=== PATIENT | female | born 1980 | race Caucasian/White ===

== ENCOUNTER → 2022-08-31 | Day surgery (SDC) | payer BC ==
[~2022-08-31] MED LIST: Bupivacaine 0.5% 30 ML SDV ONE; Dexamethasone 4 MG/ML SDV ONE; Glycopyrrolate 0.2 MG/ML 5 ML MDV ONE; Lactated Ringers 1,000 ML IV SCH; Neostigmine Methylsulfate 1 MG/ML 5 ML Syringe ONE; Nozin Nasal Sanitizer NASBOTH ONE; Ondansetron 4 MG/2 ML SDV ONE; Propofol 200 MG/20 ML SDV ONE; Rocuronium 50 MG/5 ML Vial ONE; Succinylcholine 200 MG/10 ML MDV ONE; ceFAZolin 2 GM in Premix Bag 1 BAG IV ONE; ceFAZolin 2 GM in Sodium Chloride 0.9% 50 ML IV ONE; fentaNYL 250 MCG/5 ML SDV ONE
[2022-08-31 10:29] LABS: ESTIMATED GFR 119 mL/min (>60)
[2022-08-31 17:23] VITALS: BP 114/67; PULSE 83
== END ==
LOC: JP.SDS 09:24
PROVIDERS: ATTEND Specialist
PROC: 0SB94ZZ Excision of Right Hip Joint, Percutaneous Endoscopic Approach (ICD-10-PCS; principal; 2022-08-31)
DX: S73.191A Other sprain of right hip, initial encounter (principal); X58.XXXA Exposure to other specified factors, initial encounter
CPT/HCPCS: 36415; 76000; 80053; 85027; A9270-GY; C1769; J0330; J0690; J1100; J2405; J2704; J2710; J3010; J3490; J7120

== ENCOUNTER 2023-02-16 07:08 | Inpatient (IN) | payer BC ==
[~2023-02-16 07:08] MED LIST changes: -Bupivacaine 0.5% 30 ML SDV ONE; +Bupivacaine 0.5% 50 ML MDV ONE; -Dexamethasone 4 MG/ML SDV ONE; -Glycopyrrolate 0.2 MG/ML 5 ML MDV ONE; -Lactated Ringers 1,000 ML IV SCH; +Lidocaine 1% with EPINEPHrine 1:100,000 50 ML MDV ONE; +Meropenem 500 MG SDV ONE; -Neostigmine Methylsulfate 1 MG/ML 5 ML Syringe ONE; -Nozin Nasal Sanitizer NASBOTH ONE; -Ondansetron 4 MG/2 ML SDV ONE; -Propofol 200 MG/20 ML SDV ONE; -Rocuronium 50 MG/5 ML Vial ONE; -Succinylcholine 200 MG/10 ML MDV ONE; -ceFAZolin 2 GM in Premix Bag 1 BAG IV ONE; -ceFAZolin 2 GM in Sodium Chloride 0.9% 50 ML IV ONE; -fentaNYL 250 MCG/5 ML SDV ONE
[2023-02-16] MEDS ORDERED: fentaNYL 250 MCG/5 ML SDV ONE ×2 (07:11→09:18)
[2023-02-16] MEDS ORDERED: Neostigmine Methylsulfate 1 MG/ML 5 ML Syringe ONE (07:12)
[2023-02-16] MEDS ORDERED: Propofol 200 MG/20 ML SDV ONE (07:12)
[2023-02-16] MEDS ORDERED: Succinylcholine 200 MG/10 ML MDV ONE (07:12)
[2023-02-16] MEDS ORDERED: Rocuronium 50 MG/5 ML Vial ONE (07:12)
[2023-02-16] MEDS ORDERED: Ondansetron 4 MG/2 ML SDV ONE (07:12)
[2023-02-16] MEDS ORDERED: Glycopyrrolate 0.2 MG/ML 5 ML MDV ONE (07:12)
[2023-02-16] MEDS ORDERED: Dexamethasone 4 MG/ML SDV ONE (07:12)
[2023-02-16] MEDS ORDERED: Celecoxib 200 MG Cap PO ONE (07:30)
[2023-02-16] MEDS ORDERED: Dextrose 5%-Lactated Ringers 1,000 ML IV SCH (07:30)
[2023-02-16] MEDS ORDERED: Scopolamine 1.5 MG Transdermal Patch TOP SCH (07:30)
[2023-02-16] MEDS ORDERED: cefOXitin 2 GM in Sodium Chloride 0.9% 50 ML IV ONE (08:30)
[2023-02-16 08:37] LABS: FOLIC ACID 18.8 ng/ml (8.6-58.9)
[2023-02-16] MEDS ORDERED: Ketamine 14 MG in Sodium Chloride 0.9% 19.86 ML IV SCH (08:45)
[2023-02-16] MEDS ORDERED: Ropivacaine 36 ML, dexAMETHasone 8 MG, EPINEPHrine 0.4 MG, Sodium Chloride 0.9% 41.6 ML NERVRT SCH ×4 (08:45)
[2023-02-16] MEDS ORDERED: Ketamine 500 MG/5 ML MDV IV SCH (08:45)
[2023-02-16] MEDS ORDERED: Propofol 1,000 MG/100 ML SDV ONE (10:00)
[2023-02-16] MEDS ORDERED: Naloxone 0.4 MG/ML SDV IVPUSH PRN (10:14)
[2023-02-16] MEDS ORDERED: diphenhydrAMINE 50 MG/ML SDV IVPUSH PRN ×2 (10:14→12:00)
[2023-02-16] MEDS ORDERED: diphenhydrAMINE 25 MG Cap PO PRN (10:14)
[2023-02-16] MEDS ORDERED: Ondansetron 4 MG/2 ML SDV IVPUSH PRN ×2 (10:14→12:00)
[2023-02-16] MEDS ORDERED: fentaNYL/Normal Saline 600 MCG/30 ML PCA Vial IV PRN (10:15)
[2023-02-16] MEDS ORDERED: fentaNYL 50 MCG/ML SDV IVPUSH ONE (10:26)
[2023-02-16] MEDS ORDERED: Cyclobenzaprine 10 MG Tab PO PRN (11:20)
[2023-02-16] MEDS: Dextrose 5%-Lactated Ringers 1,000 ML IV SCH ×2 (11:40→23:28)
[2023-02-16] MEDS ORDERED: Pantoprazole 40 MG Vial IVPUSH SCH (12:00)
[2023-02-16] MEDS ORDERED: hydrOXYzine HCl 50 MG/ML SDV IM PRN (12:00)
[2023-02-16] MEDS ORDERED: Metoclopramide 10 MG/2 ML SDV IVPUSH PRN (12:00)
[2023-02-16] MEDS ORDERED: Labetalol 20 MG/4 ML Syringe IVPUSH PRN (12:00)
[2023-02-16] MEDS ORDERED: Acetaminophen 500 MG Tab PO PRN (12:00)
[2023-02-16] MEDS: SCOPOLAMINE PATCH CHECK TOP SCH (14:05)
[2023-02-16] MEDS: cefOXitin 2 GM in Sodium Chloride 0.9% 50 ML IV SCH ×2 (14:40→20:13)
[2023-02-16] MEDS: MVI, Adult with Vitamin K 10 ML, Thiamine 200 MG, Zinc/Copper/Manganese/Selenium 1 ML i... IV SCH ×4 (16:05)
[2023-02-16] MEDS: Heparin Sodium 5,000 Units/ML Vial SUBCUT SCH (17:18)
[2023-02-16] MEDS: Acetaminophen 500 MG Tab PO SCH (19:23)
[2023-02-16] MEDS: traMADol 50 MG Tab PO PRN (20:12)
[2023-02-17] MEDS: Acetaminophen 500 MG Tab PO SCH ×3 (01:46→18:05)
[2023-02-17] MEDS: cefOXitin 2 GM in Sodium Chloride 0.9% 50 ML IV SCH (01:47)
[2023-02-17] MEDS: traMADol 50 MG Tab PO PRN ×4 (03:06→23:08)
[2023-02-17] MEDS ORDERED: Iopamidol 612 MG/ML 50 ML SDV PO ONE (03:59)
[2023-02-17] MEDS: Heparin Sodium 5,000 Units/ML Vial SUBCUT SCH ×2 (06:43→18:05)
[2023-02-17] MEDS: Dextrose 5%-Lactated Ringers 1,000 ML IV SCH ×2 (07:08→07:53)
[2023-02-17] MEDS ORDERED: Ondansetron 4 MG Tab.DIS PO PRN (07:39)
[2023-02-17] MEDS: Bisacodyl 5 MG Tab PO SCH ×2 (09:52→20:12)
[2023-02-17] MEDS: Docusate Sodium 100 MG Cap PO SCH ×2 (09:52→20:12)
[2023-02-17] MEDS: SCOPOLAMINE PATCH CHECK TOP SCH (09:53)
[2023-02-17] MEDS: Pantoprazole 40 MG Tab.CR PO SCH (11:05)
[2023-02-17] MEDS: MVI, Adult with Vitamin K 10 ML, Thiamine 200 MG, Zinc/Copper/Manganese/Selenium 1 ML i... IV SCH ×4 (16:22)
[2023-02-18] MEDS: Dextrose 5%-Lactated Ringers 1,000 ML IV SCH (02:17)
[2023-02-18] MEDS: Acetaminophen 500 MG Tab PO SCH ×2 (02:29→09:57)
[2023-02-18] MEDS: Heparin Sodium 5,000 Units/ML Vial SUBCUT SCH (05:32)
[2023-02-18] MEDS: traMADol 50 MG Tab PO PRN (07:23)
[2023-02-18] MEDS: Pantoprazole 40 MG Tab.CR PO SCH (07:24)
[2023-02-18 07:29] VITALS: BP 99/55; PULSE 80
[2023-02-18] MEDS ORDERED: Cyanocobalamin (Vitamin B12) 1,000 MCG/ML SDV IM ONE (09:00)
[2023-02-18] MEDS: Bisacodyl 5 MG Tab PO SCH (09:52)
[2023-02-18] MEDS: SCOPOLAMINE PATCH CHECK TOP SCH (09:53)
[2023-02-18] MEDS: Docusate Sodium 100 MG Cap PO SCH (09:54)
[2023-02-18] MEDS: Magnesium Hydroxide 400 MG/5 ML Susp 30 ML Cup PO PRN ×2 (10:25→10:26)
== END 2023-02-18 11:17 | disposition home or self-care (01) | DRG 221 ==
LOC: JP.SDS 07:08 → JP.MS 10:10
PROVIDERS: ADMIT Surgery; ATTEND Surgery
PROC: 0DB80ZZ Excision of Small Intestine, Open Approach (ICD-10-PCS; principal; 2023-02-16)
PROC: 0DB80ZZ Excision of Small Intestine, Open Approach (ICD-10-PCS; 2023-02-16)
PROC: 0DB80ZZ Excision of Small Intestine, Open Approach (ICD-10-PCS; 2023-02-16)
PROC: 0WQF0ZZ Repair Abdominal Wall, Open Approach (ICD-10-PCS; 2023-02-16)
PROC: 3E0M05Z Introduction of Adhesion Barrier into Peritoneal Cavity, Open Approach (ICD-10-PCS; 2023-02-16)
PROC: 0DBW0ZZ Excision of Peritoneum, Open Approach (ICD-10-PCS; 2023-02-16)
DX: K95.89 Other complications of other bariatric procedure (principal); Z98.84 Bariatric surgery status; K56.609 Unspecified intestinal obstruction, unspecified as to partial versus complete obstruction; K43.0 Incisional hernia with obstruction, without gangrene; K66.8 Other specified disorders of peritoneum; K63.9 Disease of intestine, unspecified; Z88.7 Allergy status to serum and vaccine; Z79.899 Other long term (current) drug therapy; Z88.1 Allergy status to other antibiotic agents; Z88.8 Allergy status to other drugs, medicaments and biological substances
CPT/HCPCS: 36415; 74240; 74240-26; 82306; 82607; 82728; 82746; 88302; 88305; 88307; A9270-GY; C9113; J0131; J0171; J0330; J0694; J1100; J1200; J1644; J2020; J2185; J2405; J2704; J2710; J2765; J2795; J3010; J3411; J3420; J3490; J7121; Q9967; U0002

== ENCOUNTER 2023-03-08 09:17 | Day surgery (SDC) | payer BC ==
[2023-03-08] MEDS ORDERED: Nozin Nasal Sanitizer NASBOTH ONE (09:30)
[2023-03-08 09:54] LABS: HEMATOCRIT 39.4 % (34.3-46.0); HEMOGLOBIN 13.3 g/dL (11.2-15.5); MEAN CORPUSCULAR HEMOGLOBIN 32.5 pg (31.6-35.5); MEAN CORPUSCULAR HGB CONC 33.8 g/dL (31.6-35.5); MEAN CORPUSCULAR VOLUME 96.3 fL (81.4-99.0); RED BLOOD CELL COUNT 4.09 M/uL (3.77-5.24); WHITE BLOOD CELL COUNT,WBC 6.5 K/uL (3.2-11.0)
[2023-03-08 10:14] LABS: A/G RATIO 1.1 (1.2-2.2); ALANINE AMINOTRANSFERASE,ALT 23 U/L (12-78); ALBUMIN 3.5 g/dL (3.4-5.0); ALKALINE PHOSPHATASE 76 U/L (46-116); ANION GAP 8.9 mmol/L (5.0-14.0); ASPARTATE AMNIOTRANSFERASE,AST 18 U/L (15-37); BILIRUBIN TOTAL 0.8 mg/dL (0.2-1.0); BLOOD UREA NITROGEN,BUN 10 mg/dL (7-18); CALCIUM 8.7 mg/dL (8.5-10.1); CARBON DIOXIDE,CO2 27 mmol/L (21-32); CHLORIDE,CL 104 mmol/L (100-108); CREATININE 0.5 mg/dL (0.6-1.0); EST CRCL DRUG DOSING (CG) 109.47 mL/min; ESTIMATED GFR 119 mL/min (>60); GLUCOSE RANDOM 91 mg/dL (74-106); POTASSIUM,K 3.8 mmol/L (3.6-5.2); PROTEIN TOTAL,TP 6.6 g/dL (6.4-8.2); SODIUM,NA 140 mmol/L (140-148)
[2023-03-08] MEDS ORDERED: Lactated Ringers 1,000 ML IV SCH (10:30)
[2023-03-08] MEDS ORDERED: fentaNYL 250 MCG/5 ML SDV ONE ×2 (10:51→12:38)
[2023-03-08] MEDS ORDERED: Midazolam 1 MG/ML 2 ML SDV ONE (10:51)
[2023-03-08] MEDS ORDERED: Rocuronium 50 MG/5 ML Vial ONE ×2 (10:52→12:39)
[2023-03-08] MEDS ORDERED: Dexamethasone 4 MG/ML SDV ONE (10:52)
[2023-03-08] MEDS ORDERED: Propofol 200 MG/20 ML SDV ONE (10:52)
[2023-03-08] MEDS ORDERED: Glycopyrrolate 0.2 MG/ML 5 ML MDV ONE (10:52)
[2023-03-08] MEDS ORDERED: Ondansetron 4 MG/2 ML SDV ONE (10:52)
[2023-03-08] MEDS ORDERED: Bupivacaine 0.5% 50 ML MDV ONE (10:59)
[2023-03-08] MEDS ORDERED: ceFAZolin 2 GM in Premix Bag 1 BAG IV ONE (11:00)
[2023-03-08] MEDS ORDERED: Lactated Ringers 1,000 ML ONE (14:03)
[2023-03-08] MEDS ORDERED: diphenhydrAMINE 50 MG/ML SDV ONE (14:25)
[2023-03-08] MEDS ORDERED: Sugammadex Sodium 200 MG/2 ML VIAL ONE (15:13)
[2023-03-08 16:40] VITALS: BP 105/64; PULSE 86
== END 2023-03-08 17:30 | disposition home or self-care (01) ==
LOC: JP.SDS 09:17
PROVIDERS: ATTEND Specialist
DX: M25.851 Other specified joint disorders, right hip (principal); M24.851 Other specific joint derangements of right hip, not elsewhere classified; J45.909 Unspecified asthma, uncomplicated; E66.01 Morbid (severe) obesity due to excess calories; Z98.84 Bariatric surgery status; Z79.899 Other long term (current) drug therapy; Z88.1 Allergy status to other antibiotic agents; Z88.5 Allergy status to narcotic agent; Z88.0 Allergy status to penicillin; Z88.2 Allergy status to sulfonamides; Z88.8 Allergy status to other drugs, medicaments and biological substances; Z91.048 Other nonmedicinal substance allergy status; Z68.29 Body mass index [BMI] 29.0-29.9, adult
CPT/HCPCS: 29914; 29999; 36415; 80053; 85027; A9270; C1713; C9803; J0690; J1100; J1200; J2250; J2405; J2704; J3010; J3490; J7120

== ENCOUNTER 2023-08-30 08:10 | Day surgery (SDC) | payer BC ==
[2023-08-30] MEDS ORDERED: fentaNYL 250 MCG/5 ML SDV ONE ×2 (08:29→12:27)
[2023-08-30 08:30] LABS: BASOPHILS PERCENT AUTO 0.4 % (0.1-1.3); EOSINOPHILS ABSOLUTE AUTO 0.07 K/uL (0.00-0.40); EOSINOPHILS PERCENT AUTO 1.5 % (0.0-5.4); HEMATOCRIT 40.9 % (34.3-46.0); HEMOGLOBIN 13.8 g/dL (11.2-15.5); IMMATURE GRAN PERCENT AUTO 0.2 % (0.0-0.7); LYMPHOCYTES ABSOLUTE AUTO 1.89 K/uL (0.8-3.3); LYMPHOCYTES PERCENT AUTO 39.7 % (11.4-47.7); MEAN CORPUSCULAR HEMOGLOBIN 32.1 pg (31.6-35.5); MEAN CORPUSCULAR HGB CONC 33.7 g/dL (31.6-35.5); MEAN CORPUSCULAR VOLUME 95.1 fL (81.4-99.0); MONOCYTES ABSOLUTE AUTO 0.38 K/uL (0.20-0.90); NEUTROPHILS ABSOLUTE AUTO 2.39 K/uL (1.0-7.6); NEUTROPHILS PERCENT AUTO 50.2 % (40.0-78.1); PLATELET COUNT,PLT 352 K/uL (130-375); WHITE BLOOD CELL COUNT,WBC 4.8 K/uL (3.2-11.0)
[2023-08-30] MEDS ORDERED: Propofol 200 MG/20 ML SDV ONE (08:30)
[2023-08-30] MEDS ORDERED: Ondansetron 4 MG/2 ML SDV ONE (08:30)
[2023-08-30] MEDS ORDERED: Neostigmine Methylsulfate 10 MG/10 ML MDV ONE (08:30)
[2023-08-30] MEDS ORDERED: Succinylcholine 200 MG/10 ML MDV ONE (08:30)
[2023-08-30] MEDS ORDERED: Dexamethasone 4 MG/ML SDV ONE (08:30)
[2023-08-30] MEDS ORDERED: Glycopyrrolate 0.2 MG/ML 5 ML MDV ONE (08:30)
[2023-08-30] MEDS ORDERED: Rocuronium 50 MG/5 ML Vial ONE (08:30)
[2023-08-30 08:40] LABS: BASOPHILS ABSOLUTE AUTO 0.02 K/uL (0.00-0.10); IMMATURE GRAN ABSOLUTE AUTO 0.01 K/uL (0.00-0.23)
[2023-08-30 08:51] LABS: A/G RATIO 1.2 (1.2-2.2); ALANINE AMINOTRANSFERASE,ALT 20 U/L (12-78); ALBUMIN 3.7 g/dL (3.4-5.0); ALKALINE PHOSPHATASE 95 U/L (46-116); ANION GAP 7.8 mmol/L (5.0-14.0); ASPARTATE AMNIOTRANSFERASE,AST 20 U/L (15-37); BILIRUBIN TOTAL 0.9 mg/dL (0.2-1.0); BLOOD UREA NITROGEN,BUN 10 mg/dL (7-18); CALCIUM 8.4 mg/dL (8.5-10.1); CARBON DIOXIDE,CO2 29 mmol/L (21-32); CHLORIDE,CL 105 mmol/L (100-108); CREATININE 0.6 mg/dL (0.6-1.0); EST CRCL DRUG DOSING (CG) 94.63 mL/min; ESTIMATED GFR 113 mL/min (>60); GLUCOSE RANDOM 83 mg/dL (74-106); POTASSIUM,K 3.8 mmol/L (3.6-5.2); PROTEIN TOTAL,TP 6.7 g/dL (6.4-8.2); SODIUM,NA 142 mmol/L (140-148)
[2023-08-30] MEDS ORDERED: Lactated Ringers 1,000 ML IV SCH (09:00)
[2023-08-30] MEDS ORDERED: Nozin Nasal Sanitizer NASBOTH ONE (09:00)
[2023-08-30] MEDS ORDERED: Bupivacaine 0.5% 50 ML MDV ONE (09:18)
[2023-08-30] MEDS ORDERED: ceFAZolin 2 GM in Sodium Chloride 0.9% 50 ML IV ONE (09:30)
[2023-08-30] MEDS ORDERED: Propofol 1,000 MG/100 ML SDV ONE (11:00)
[2023-08-30] MEDS ORDERED: traMADol 50 MG Tab PO PRN (13:59)
[2023-08-30 14:56] VITALS: BP 105/58; PULSE 67
== END 2023-08-30 15:15 | disposition home or self-care (01) ==
LOC: JP.SDS 08:10
PROVIDERS: ATTEND Specialist
DX: S73.199A Other sprain of unspecified hip, initial encounter (principal); M24.851 Other specific joint derangements of right hip, not elsewhere classified; H04.511 Dacryolith of right lacrimal passage
CPT/HCPCS: 29862; 36415; 76000; 80053; 85025; A9270; J0330; J0690; J2405; J2704; J2710; J3010; J3490; J7120; J1100

== ENCOUNTER 2025-02-22 06:21 | Day surgery (SDC) | payer BC ==
[2025-02-22] MEDS ORDERED: Bupivacaine 0.25%/EPINEPHrine 1:200,000 30 ML SDV ONE (06:37)
[2025-02-22] MEDS: Lactated Ringers 1,000 ML IV SCH (07:02)
[2025-02-22] MEDS ORDERED: fentaNYL 250 MCG/5 ML SDV ONE ×2 (07:13→07:52)
[2025-02-22] MEDS ORDERED: Neostigmine Methylsulfate 10 MG/10 ML MDV ONE (07:14)
[2025-02-22] MEDS ORDERED: Propofol 200 MG/20 ML SDV ONE ×2 (07:14→11:15)
[2025-02-22] MEDS ORDERED: Glycopyrrolate 0.2 MG/ML 5 ML MDV ONE (07:14)
[2025-02-22] MEDS ORDERED: Dexamethasone 4 MG/ML SDV ONE (07:14)
[2025-02-22] MEDS ORDERED: Ondansetron 4 MG/2 ML SDV ONE (07:14)
[2025-02-22] MEDS ORDERED: Succinylcholine 200 MG/10 ML MDV ONE (07:14)
[2025-02-22] MEDS ORDERED: Rocuronium 50 MG/5 ML Vial ONE ×2 (07:14→08:39)
[2025-02-22] MEDS: ceFAZolin 2 GM in Premix Bag 1 BAG IV ONE (07:17)
[2025-02-22] MEDS: Bupivacaine 0.25%/EPINEPHrine 1:200,000 30 ML SDV INJECT ONE (07:45)
[2025-02-22] MEDS ORDERED: Propofol 1,000 MG/100 ML SDV ONE (09:00)
[2025-02-22 12:54] VITALS: BP 102/58; PULSE 70
[2025-02-22] MEDS: traMADol 50 MG Tab PO PRN (12:55)
== END 2025-02-22 13:03 | disposition home or self-care (01) ==
LOC: JP.SDS 06:21
PROVIDERS: ATTEND Surgery
DX: K43.2 Incisional hernia without obstruction or gangrene (principal); E66.9 Obesity, unspecified; Z68.25 Body mass index [BMI] 25.0-25.9, adult; Z88.0 Allergy status to penicillin; Z88.2 Allergy status to sulfonamides; Z88.5 Allergy status to narcotic agent; Z88.1 Allergy status to other antibiotic agents
CPT/HCPCS: 49593; 81025; A9270; C1781; J0330; J0690; J1596; J2405; J2704; J2710; J3010; J7120; J1100; J3490